=== PATIENT | female | born 1970 | race Caucasian/White ===

== ENCOUNTER → 2017-02-17 | Day surgery (SDC) | payer OTHER | END | disposition home or self-care (01) | LOC: CIR.AMB | DX: M76.822 Posterior tibial tendinitis, left leg (principal); M66.372 Spontaneous rupture of flexor tendons, left ankle and foot ==

== ENCOUNTER 2017-04-23 14:42 | Outpatient (CLI) | payer OTHER ==
[2017-04-24] MEDS ORDERED: CIPROFLOXACIN750 MG PO (15:50)
[2017-04-24] MEDS ORDERED: ULTRACET PO (16:28)
== END 2017-04-23 14:50 | disposition home or self-care (01) ==
LOC: RAD 501 14:42
DX: M79.672 Pain in left foot (principal)

== ENCOUNTER 2017-04-23 18:09 | Day surgery (SDC) | payer OTHER ==
[~2017-04-23] VITALS: Ht 157.5 cm; Wt 95.3 kg
[2017-04-24] MEDS ORDERED: CIPROFLOXACIN750 MG PO (15:50)
[2017-04-24] MEDS ORDERED: ULTRACET PO (16:28)
== END 2017-04-24 17:50 | disposition home or self-care (01) ==
LOC: ER 18:09 → SEC-K 21:05 → O/R 04-24 07:37 → SEC-K 04-24 07:37 → CIR.AMB 04-24 13:30 → U 04-24 13:30 → CIR.AMB 04-24 17:50
DX: T84.84XA Pain due to internal orthopedic prosthetic devices, implants and grafts, initial encounter (principal); S86.012A Strain of left Achilles tendon, initial encounter

== ENCOUNTER → 2017-04-30 | Outpatient (CLI) | payer OTHER ==
[~2017-04-30] MED LIST: CIPROFLOXACIN750 MG PO; ULTRACET PO
== END | disposition home or self-care (01) ==
LOC: RAD 501 08:40
DX: M79.672 Pain in left foot (principal)

== ENCOUNTER 2017-05-28 13:45 | Outpatient (CLI) | payer OTHER | END 2017-05-28 13:54 | disposition home or self-care (01) | LOC: RAD 501 13:45 | DX: M76.822 Posterior tibial tendinitis, left leg (principal) ==

== ENCOUNTER 2017-08-13 18:07 | Outpatient (CLI) | payer OTHER | END 2017-08-13 18:52 | disposition home or self-care (01) | LOC: LAB 18:07 | DX: M25.462 Effusion, left knee (principal) ==

== ENCOUNTER 2017-08-14 11:06 | Outpatient (CLI) | payer OTHER | END 2017-08-14 11:30 | disposition home or self-care (01) | LOC: LAB 11:06 | DX: D64.89 Other specified anemias (principal); M06.4 Inflammatory polyarthropathy; M10.49 Other secondary gout, multiple sites ==

== ENCOUNTER → 2017-08-14 | Outpatient (CLI) | payer OTHER | END | disposition home or self-care (01) | LOC: RAD 10:14 | DX: M25.562 Pain in left knee (principal) ==

== ENCOUNTER 2018-06-30 08:48 | Outpatient (CLI) | payer OTHER | END 2018-06-30 09:07 | disposition home or self-care (01) | LOC: RAD 501 08:48 | DX: M25.562 Pain in left knee (principal); M25.572 Pain in left ankle and joints of left foot ==

== ENCOUNTER 2020-03-08 15:54 | Outpatient (CLI) | payer OTHER | END 2020-03-08 16:17 | disposition HB | LOC: RAD 15:54 | PROVIDERS: ATTEND Orthopaedic Surgery | DX: M77.32 Calcaneal spur, left foot (principal); M25.562 Pain in left knee; M25.572 Pain in left ankle and joints of left foot ==

== ENCOUNTER → 2023-11-06 | Emergency (ER) | payer OTHER ==
[~2023-11-06] VITALS: Ht 170.2 cm; Wt 99.8 kg
[~2023-11-06] MED LIST changes: +KETOROLAC TROMETHAMINE 60 MG VIAL IM STA
== END | disposition home or self-care (01) ==
LOC: ER 09:10
DX: M25.561 Pain in right knee (principal)

== ENCOUNTER 2023-11-23 06:23 | Outpatient (CLI) | payer OTHER ==
[~2023-11-23 06:23] MED LIST changes: -KETOROLAC TROMETHAMINE 60 MG VIAL IM STA
[2023-11-23 07:01] LABS: HEMATOCRIT 42.2 % (36.0-45.00); HEMOGLOBIN 14.5 g/dL (12.0-15.00); MEAN CELL VOLUME 84.6 fL (80.00-100.00); MEAN CORPUSCULAR HGB CONC 34.3 g/dl (32.0-36.0); PLATELET COUNT 264 K/uL (150-450); RED BLOOD COUNT 4.99 M/uL (4.00-6.00); RED CELL DISTRIBUTION WIDTH 13.7 % (11.5-14.5)
[2023-11-23 07:09] LABS: URINE APPEARANCE Clear; URINE BILIRRUBIN Negative (NEGATIVE); URINE BLOOD Negative; URINE COLOR Yellow; URINE GLUCOSE Negative (NEGATIVE); URINE KETONE Negative (NEGATIVE); URINE LEUKOCYTE Negative; URINE NITRATE Negative; URINE PROTEIN Negative (NEGATIVE)
[2023-11-23 07:13] LABS: URINE BACTERIA 639.9 uL (0.0-1933); URINE EPITHELIAL CELLS 14.3 uL (0.0-38.8); URINE RBC 2.7 uL (0.0-20.8); URINE WBC 8.9 uL (0.0-23.2)
[2023-11-23 07:14] LABS: URINE CAST 0.15 uL (0.0-1.40)
[2023-11-23 07:51] LABS: COL EPI 103 SECONDS (82-175)
[2023-11-23 08:12] LABS: INR 1.04; PARTIAL THROMBOPLASTIN TIME 29.9 SECONDS (22.0-34.0); PROTHROMBIN TIME 10.8 SECONDS (9.0-11.5)
[2023-11-23 08:15] LABS: ALBUMIN 3.6 gm/dL (3.4-5.0); BILIRUBIN TOTAL 0.51 mg/dL (0.3-1.2); CREATININE SERUM 0.53 mg/dL (0.55-1.02); GFR 120.67; GLOBULINA 4.1 G/DL (2.4-3.5); POTASSIUM 4.47 mEq/L (3.5-5.1); TOTAL PROTEIN 7.7 gm/dL (6.4-8.2)
== END 2023-11-23 06:25 | disposition home or self-care (01) ==
LOC: LAB 06:23
PROVIDERS: ATTEND Orthopaedic Surgery
DX: D64.9 Anemia, unspecified (principal); E88.89 Other specified metabolic disorders; D68.8 Other specified coagulation defects; N39.0 Urinary tract infection, site not specified; Z22.322 Carrier or suspected carrier of Methicillin resistant Staphylococcus aureus; I10 Essential (primary) hypertension; Z76.89 Persons encountering health services in other specified circumstances

== ENCOUNTER 2023-12-07 06:35 | Day surgery (SDC) | payer OTHER ==
[2023-12-07] MEDS ORDERED: CIPROFLOXACIN IN 5 % DEXTROSE 400 MG/200 ML PIGGYBAG IV ONE (12:00)
[2023-12-07] MEDS ORDERED: EPINEPHRINE HCL/PF 1 MG/ML AMPUL IV ONE (12:00)
[2023-12-07] MEDS ORDERED: LIDOCAINE HCL 1%/EPINEPHRINE 20ML VIAL IJ ONE (12:00)
[2023-12-07] MEDS ORDERED: METHYLPREDNISOLONE ACETATE 80 MG/ML VIAL IM ONE (12:00)
[2023-12-07] MEDS ORDERED: ISOPROPYL ALCOHOL 30 ML OUNCE TOP ONE (12:00)
[2023-12-07] MEDS ORDERED: BUPIVACAINE HCL 30 ML VIAL IV ONE (12:00)
[2023-12-07] MEDS ORDERED: MORPHINE SULFATE 4 MG/ML VIAL IV ONE (15:15)
== END 2023-12-07 17:40 | disposition home or self-care (01) ==
LOC: CIR.AMB 06:35
PROVIDERS: ATTEND Orthopaedic Surgery
DX: M23.231 Derangement of other medial meniscus due to old tear or injury, right knee (principal); M17.11 Unilateral primary osteoarthritis, right knee; M65.861 Other synovitis and tenosynovitis, right lower leg